=== PATIENT | female | born 1990 | race African-American/Black ===

== ENCOUNTER 2021-02-22 22:00 | Emergency (ER) | payer SELFPAY ==
[~2021-02-22] VITALS: Ht 160 cm; Wt 63.6 kg
[~2021-02-22 22:00] MED LIST: FIORICET 325 MG1 TA1 PO; ZOFRAN 4MG T4 MG/TAB PO; ZOFRAN ODT4 MG PO
[2021-02-22 22:23] VITALS: TEMP 97.2
[2021-02-23 01:21] VITALS: BP 110/75; PULSE 59
== END 2021-02-23 01:21 | disposition home or self-care (01) ==
LOC: COL.ER 22:00
DX: R51.9 Headache, unspecified (principal); R20.2 Paresthesia of skin; F17.210 Nicotine dependence, cigarettes, uncomplicated; Z86.69 Personal history of other diseases of the nervous system and sense organs; Z86.16 Personal history of COVID-19
CPT/HCPCS: J0780; J1100; J1200; J1885; J7030

== ENCOUNTER → 2021-11-07 | Outpatient (CLI) | payer BC | LOC: COL.RAD 08:35 | DX: R20.2 Paresthesia of skin (principal) ==